=== PATIENT | male | born 1980 | race African-American/Black ===

== ENCOUNTER 2017-12-04 19:13 | Emergency (ER) | payer OTHER ==
[2017-12-04] MEDS: DIPHTH,PERTUSS(ACELL),TET TOX 0.5 ML DISP.SYRIN. VAX IM ×2 (19:44)
== END 2017-12-04 19:47 | disposition home or self-care (01) ==
LOC: ER 19:13
DX: S61.432A Puncture wound without foreign body of left hand, initial encounter (principal); Z88.1 Allergy status to other antibiotic agents; Z88.6 Allergy status to analgesic agent; W45.0XXA Nail entering through skin, initial encounter; Y93.89 Activity, other specified; Y99.8 Other external cause status; Y92.89 Other specified places as the place of occurrence of the external cause
CPT/HCPCS: 90471; 90715; 99283-25

== ENCOUNTER 2020-04-16 06:57 | Emergency (ER) | payer OTHER ==
[~2020-04-16] VITALS: Ht 172.7 cm; Wt 132.0 kg
[~2020-04-16 06:57] MED LIST: CEPH500C PO; HYDR-3164 PO; QUET25TA5 PO
[2020-04-16 07:58] LABS: BASO % 1 % (0-3); EOS # 0.1 x10^3/uL (0.0-0.7); EOS % 4 % (0-3); HEMATOCRIT 41.1 % (39.0-53.0); HEMOGLOBIN 13.7 g/dL (13.0-17.5); LYMPH # 1.2 x10^3/uL (1.0-4.8); LYMPH % 30 % (24-48); MEAN CORPUSCULAR HEMOGLOBIN 29 pg (25-35); MEAN CORPUSCULAR HGB CONC 33 g/dL (31-37); MEAN CORPUSCULAR VOLUME 87 fL (79-100); MONO # 0.6 x10^3/uL (0.0-1.1); MONO % 15 % (0-9); NEUT % 50 % (31-73); PLATELET COUNT 146 x10^3/uL (140-400); RED BLOOD COUNT 4.74 x10^6/uL (4.30-5.70); RED CELL DISTRIBUTION WIDTH 14.8 % (11.5-14.5); WHITE BLOOD COUNT 3.9 x10^3/uL (4.0-11.0)
--- NOTE | 2020-04-16 08:03 | RAD ---
Right ankle x-rays 3 views HISTORY: Right ankle pain. FINDINGS: There is benign mature periosteal ossification along the lateral cortex of the mid tibial shaft likely an old healed stress fracture or old healed traumatic injury. There is calf and ankle soft tissue edema noted. No acute fracture. No dislocation. No talus osteochondral lesion. IMPRESSION: No acute osseous injury. Ankle and calf soft tissue edema. Electronically signed by: Miguel Vicente MD (04/16/2020 8:00 AM) [id number]
[2020-04-16 08:06] LABS: CALCIUM 8.1 mg/dL (8.5-10.1); CREATININE 1.2 mg/dL (0.7-1.3); POTASSIUM 3.2 mmol/L (3.5-5.1)
[2020-04-16 08:11] LABS: ALBUMIN/GLOBULIN RATIO 0.9 (1.0-1.7); TOTAL BILIRUBIN 0.4 mg/dL (0.2-1.0); TOTAL PROTEIN 6.5 g/dL (6.4-8.2)
[2020-04-16] MEDS ORDERED: PROMETHAZINE 12.5 MG TABLET. PO ONE (08:45)
[2020-04-16] MEDS ORDERED: PROM25TA10 PO (08:53)
--- NOTE | 2020-04-16 08:54 | PHYS DOC ---
Past Medical History Past Medical History: Anxiety, Bronchitis, Depression Additional Past Medical Histor: bronchitis Past Surgical History: Other Additional Past Surgical Histo: LEFT ANKLE SURGERY Smoking Status: Former Smoker Alcohol Use: None Drug Use: None General Adult EDM: Chief Complaint: ANKLE PROBLEM HPI: HPI: Patient is a 39 year old male who presents with multiple complaints. Patient states that he sprained his ankle this morning stepping into a hole at a [facility] facility. He has had pain since then but has been able to bear weight. He also has been having some belly pain, nausea, diarrhea that has been ongoing for the last couple of weeks. He has been seen at the other emergency room's for this with normal work-ups. He was recently tested for coronavirus which was negative. Review of Systems: Review of Systems: General: Denies fever, chills, sweats, fatigue Eyes: Denies drainage, blurred vision, eye redness HENT: Denies rhinorrhea, sore throat, earache Respiratory: Denies cough, shortness of breath, wheezing Cardiac: Denies edema, palpitations, chest pain GI: Reports abdominal pain, nausea, diarrhea MSK: Denies back pain, neck pain Skin: Denies rash, jaundice Neuro: Denies headache, dizziness Psychiatric: Denies SI/HI Heart Score: Risk Factors: Risk Factors: DM, Current or recent (<one month) smoker, HTN, HLP, family history of CAD, obesity. Risk Scores: Score 0 - 3: 2.5% MACE over next 6 weeks - Discharge Home Score 4 - 6: 20.3% MACE over next 6 weeks - Admit for Clinical Observation Score 7 - 10: 72.7% MACE over next 6 weeks - Early Invasive Strategies Current Medications: Current Medications Medications (Trade) Dose Ordered Sig/Laila Start Time Stop Time Status Last Admin Dose Admin Promethazine HCl (Phenergan) 12.5 mg 1X ONCE 04/16/20 08:45 04/16/20 08:46 DC Allergies: Allergies: Allergies Coded Allergies Type Severity Reaction Last Updated Verified amoxicillin Allergy Intermediate hives 11/11/13 Yes cyclobenzaprine Allergy Unknown itching 05/20/16 Yes tramadol Allergy Unknown hives 05/20/16 Yes Physical Exam: PE: General: Awake, alert, NAD. Well Nourished, well hydrated. Cooperative HEENT: Atraumatic, EOMI, PERRL, airway patent, moist oral mucosa Neck: Supple, trachea midline Respiratory: CTA bilaterally, normal effort, no wheezing/crackles CV: RRR, no murmur, cap refill <2 GI: Soft, nondistended, nontender, no masses MSK: Ankle swelling without pinpoint tenderness, no obvious deformity, normal range of motion, normal sensation Skin: Warm, dry, intact Neuro: A&O x3, speech NL, sensory and motor grossly intact, no focal deficits Psych: Normal affect, normal mood, not suicidal or homicidal Current Patient Data: Labs: Laboratory Tests Test 04/16/20 07:45 White Blood Count 3.9 x10^3/uL (4.0-11.0) L Red Blood Count 4.74 x10^6/uL (4.30-5.70) Hemoglobin 13.7 g/dL (13.0-17.5) Hematocrit 41.1 % (39.0-53.0) Mean Corpuscular Volume 87 fL (79-100) Mean Corpuscular Hemoglobin 29 pg (25-35) Mean Corpuscular Hemoglobin Concent 33 g/dL (31-37) Red Cell Distribution Width 14.8 % (11.5-14.5) H Platelet Count 146 x10^3/uL (140-400) Neutrophils (%) (Auto) 50 % (31-73) Lymphocytes (%) (Auto) 30 % (24-48) Monocytes (%) (Auto) 15 % (0-9) H Eosinophils (%) (Auto) 4 % (0-3) H Basophils (%) (Auto) 1 % (0-3) Neutrophils # (Auto) 2.0 x10^3/uL (1.8-7.7) Lymphocytes # (Auto) 1.2 x10^3/uL (1.0-4.8) Monocytes # (Auto) 0.6 x10^3/uL (0.0-1.1) Eosinophils # (Auto) 0.1 x10^3/uL (0.0-0.7) Basophils # (Auto) 0.0 x10^3/uL (0.0-0.2) Sodium Level 144 mmol/L (136-145) Potassium Level 3.2 mmol/L (3.5-5.1) L Chloride Level 107 mmol/L (98-107) Carbon Dioxide Level 28 mmol/L (21-32) Anion Gap 9 (6-14) Blood Urea Nitrogen 11 mg/dL (8-26) Creatinine 1.2 mg/dL (0.7-1.3) Estimated GFR (Cockcroft-Gault) 82.0 BUN/Creatinine Ratio 9 (6-20) Glucose Level 110 mg/dL (70-99) H Calcium Level 8.1 mg/dL (8.5-10.1) L Total Bilirubin 0.4 mg/dL (0.2-1.0) Aspartate Amino Transferase (AST) 59 U/L (15-37) H Alanine Aminotransferase (ALT) 81 U/L (16-63) H Alkaline Phosphatase 84 U/L (46-116) Total Protein 6.5 g/dL (6.4-8.2) Albumin 3.0 g/dL (3.4-5.0) L Albumin/Globulin Ratio 0.9 (1.0-1.7) L Lipase 291 U/L (73-393) Laboratory Tests 04/16/20 07:45 Laboratory Tests 04/16/20 07:45 Vital Signs: Vital Signs Date Time Temp Pulse Resp B/P (MAP) Pulse Ox O2 Delivery O2 Flow Rate FiO2 04/16/20 07:06 98.0 104 20 144/88 (106) 97 Room Air 98.0 EKG: EKG: [] Radiology/Procedures: Radiology/Procedures: [] Course & Med Decision Making: Course & Med Decision Making Pertinent Labs and Imaging studies reviewed. (See chart for details) Patient is a 39-year-old male presents the emergency room with ankle pain and stomach complaints. Abdominal labs ordered including CBC, BMP, lipase, UA and were normal. Patient has a swollen ankle and x-rays were done. X-rays were negative for acute fracture. He likely has a sprain ankle. Julien wrap will be placed. Patient was given oral Phenergan for symptoms. Patient's test results and vitals while in the ED were fully reviewed and discussed with the patient. Patient is stable and at this time does not need admission to the hospital. We have discussed strict return precautions and the importance of following up with their Primary Care Physician. Patient stated understanding and was given an opportunity to ask any questions. Patient is in agreement with plan. Clemencia Disclaimer: Dragon Disclaimer: This electronic medical record was generated, in whole or in part, using a voice recognition dictation system. Departure Departure Impression: Primary Impression: Sprained ankle Additional Impressions: Abdominal pain Nausea Disposition: HOME, SELF-CARE Condition: STABLE Referrals: NO PCP (PCP) Patient Instructions: Abdominal Pain (Nonspecific), Ankle Sprain Scripts Promethazine Hcl (PROMETHAZINE HCL) 25 Mg Tablet 1 TAB PO PRN Q6HRS, #12 TAB Prov: NHI MELO MD 04/16/20 Justicifation of Admission Dx: Justifications for Admission: Justification of Admission Dx: No NHI MELO MD Apr 16, 2020 08:54
[2020-04-16 09:47] VITALS: BP 145/62
== END 2020-04-16 10:24 | disposition home or self-care (01) ==
LOC: ER 06:57
DX: S93.491A Sprain of other ligament of right ankle, initial encounter (principal); R10.9 Unspecified abdominal pain; R19.7 Diarrhea, unspecified; R11.0 Nausea; F41.9 Anxiety disorder, unspecified; J42 Unspecified chronic bronchitis; F32.9 Major depressive disorder, single episode, unspecified; Z98.890 Other specified postprocedural states; Z87.891 Personal history of nicotine dependence; Z88.0 Allergy status to penicillin; Z88.8 Allergy status to other drugs, medicaments and biological substances; W18.31XA Fall on same level due to stepping on an object, initial encounter; Y93.89 Activity, other specified; Y92.89 Other specified places as the place of occurrence of the external cause; Y99.8 Other external cause status
CPT/HCPCS: 36415; 73610; 80053; 83690; 85025; 99285; Q0169

== ENCOUNTER 2022-01-27 19:16 | Emergency (ER) | payer OTHER ==
[~2022-01-27] VITALS: Ht 170.2 cm; Wt 110.0 kg
[~2022-01-27 19:16] MED LIST changes: +PROM25TA10 PO
[2022-01-27] MEDS ORDERED: guaiFENesin/CODEINE 100mg/10mg 5 ML LIQUID PO STA (19:48)
[2022-01-27 19:59] LABS: BASO % 1 % (0-3); EOS # 0.1 x10^3/uL (0.0-0.7); EOS % 2 % (0-3); HEMATOCRIT 45.2 % (39.0-53.0); HEMOGLOBIN 14.7 g/dL (13.0-17.5); LYMPH # 0.8 x10^3/uL (1.0-4.8); LYMPH % 15 % (24-48); MEAN CORPUSCULAR HEMOGLOBIN 28 pg (25-35); MEAN CORPUSCULAR HGB CONC 33 g/dL (31-37); MEAN CORPUSCULAR VOLUME 86 fL (79-100); MONO # 0.7 x10^3/uL (0.0-1.1); MONO % 13 % (0-9); NEUT # 3.8 x10^3/uL (1.8-7.7); NEUT % 70 % (31-73); PLATELET COUNT 199 x10^3/uL (140-400); RED BLOOD COUNT 5.29 x10^6/uL (4.30-5.70); RED CELL DISTRIBUTION WIDTH 15.5 % (11.5-14.5); WHITE BLOOD COUNT 5.4 x10^3/uL (4.0-11.0)
[2022-01-27] MEDS ORDERED: IPRATRPIUM/ALBUTEROL 0.5/2.5MG 3 ML NEBU. NEB ONE (20:00)
[2022-01-27] MEDS ORDERED: DEXAMETHASONE SOD PHOS 20 MG/5 ML VIAL. IV ONE (20:00)
[2022-01-27 20:07] LABS: CALCIUM 8.9 mg/dL (8.5-10.1); CREATININE 0.9 mg/dL (0.7-1.3); GFR 113.1
[2022-01-27 20:13] LABS: ALBUMIN 3.4 g/dL (3.4-5.0); ALBUMIN/GLOBULIN RATIO 0.9 (1.0-1.7); MAGNESIUM 1.7 mg/dL (1.8-2.4); TOTAL BILIRUBIN 0.4 mg/dL (0.2-1.0); TOTAL PROTEIN 7.4 g/dL (6.4-8.2)
[2022-01-27] MEDS ORDERED: fentaNYL PF VIAL 100 MCG/2 ML VIAL IVP ONE (20:15)
[2022-01-27 20:44] VITALS: BP 139/80
--- NOTE | 2022-01-27 20:59 | RAD ---
XR CHEST 1V History: Reason: cough / Spl. Instructions: / History: Comparison: None. Findings: No consolidation or pleural effusion. Normal heart size. No pneumothorax. Impression: 1. No acute cardiopulmonary process. Electronically signed by: Stevenson Simmons DO (01/27/2022 8:56 PM) [facility] [place]
[2022-01-27] MEDS ORDERED: BENZ-8 PO (21:22)
--- NOTE | 2022-01-27 21:23 | PHYS DOC ---
Past Medical History Past Medical History: Anxiety, Bronchitis, Depression Additional Past Medical Histor: bronchitis Past Surgical History: Other Additional Past Surgical Histo: LEFT ANKLE SURGERY Smoking Status: Never Smoker Alcohol Use: None Drug Use: None General Adult EDM: Chief Complaint: SHORTNESS OF BREATH HPI: HPI: Patient is a 41 year old male with history of bronchitis, depression, anxiety, presenting to the ED today complaining of a productive cough with shortness of breath, symptoms of been going on since January 11, 2022. Patient states he has been seen at [facility] multiple times including a couple days ago, he states they have done an extensive work-up and could not find anything wrong with him. He states his whole body hurts and would like something for pain. Review of Systems: Review of Systems: Constitutional: Denies fever or chills. [] Eyes: Denies change in visual acuity. [] HENT: Denies nasal congestion or sore throat. [] Respiratory: Reports cough and shortness of breath. [] Cardiovascular: Denies chest pain or edema. [] GI: Denies abdominal pain, nausea, vomiting, bloody stools or diarrhea. [] : Denies dysuria. [] Musculoskeletal: Denies back pain or joint pain. [] Integument: Denies rash. [] Neurologic: Denies headache, focal weakness or sensory changes. [] Psychiatric: Denies depression or anxiety. [] Heart Score: C/O Chest Pain: N/A Risk Factors: Risk Factors: DM, Current or recent (<one month) smoker, HTN, HLP, family history of CAD, obesity. Risk Scores: Score 0 - 3: 2.5% MACE over next 6 weeks - Discharge Home Score 4 - 6: 20.3% MACE over next 6 weeks - Admit for Clinical Observation Score 7 - 10: 72.7% MACE over next 6 weeks - Early Invasive Strategies Current Medications: Current Medications Medications (Trade) Dose Ordered Sig/Laila Start Time Stop Time Status Last Admin Dose Admin Albuterol/ Ipratropium (Duoneb) 3 ml 1X ONCE 01/27/22 20:00 01/27/22 20:01 DC 01/27/22 20:49 3 ML Dexamethasone Sodium Phosphate (Decadron) 10 mg 1X ONCE 01/27/22 20:00 01/27/22 20:01 DC 4/20/22 20:43 10 MG Fentanyl Citrate (Fentanyl 2ml Vial) 50 mcg 1X ONCE 01/27/22 20:15 01/27/22 20:16 DC 01/27/22 20:43 50 MCG Guaifenesin/ Codeine Phosphate (Robitussin Ac) 10 ml 1X STAT 01/27/22 19:48 01/27/22 19:53 DC 01/27/22 20:42 10 ML Ketorolac Tromethamine (Toradol 30mg Vial) 30 mg 1X ONCE 01/27/22 21:15 01/27/22 21:16 UNV Allergies: Allergies: Allergies Coded Allergies Type Severity Reaction Last Updated Verified amoxicillin Allergy Intermediate hives 11/11/13 Yes cyclobenzaprine Allergy Unknown itching 05/20/16 Yes tramadol Allergy Unknown hives 05/20/16 Yes Physical Exam: PE: Constitutional: Well developed, well nourished, no acute distress, non-toxic appearance. [] HENT: Normocephalic, atraumatic, bilateral external ears normal, oropharynx moist, no oral exudates, nose normal. [] Eyes: PERRLA, EOMI, conjunctiva normal, no discharge. [] Neck: Normal range of motion, no tenderness, supple, no stridor. [] Cardiovascular:Tachycardic. Heart rate regular rhythm Lungs & Thorax: Bilateral breath sounds clear to auscultation [] Abdomen: Bowel sounds normal, soft, no tenderness, no masses, no pulsatile masses. [] Skin: Warm, dry, no erythema, no rash. [] Back: No tenderness, no CVA tenderness. [] Extremities: No tenderness, no cyanosis, no clubbing, ROM intact, no edema. [] Neurologic: Alert and oriented X 3, normal motor function, normal sensory function, no focal deficits noted. [] Psychologic: Restless Current Patient Data: Labs: Laboratory Tests Test 01/27/22 19:50 White Blood Count 5.4 x10^3/uL (4.0-11.0) Red Blood Count 5.29 x10^6/uL (4.30-5.70) Hemoglobin 14.7 g/dL (13.0-17.5) Hematocrit 45.2 % (39.0-53.0) Mean Corpuscular Volume 86 fL (79-100) Mean Corpuscular Hemoglobin 28 pg (25-35) Mean Corpuscular Hemoglobin Concent 33 g/dL (31-37) Red Cell Distribution Width 15.5 % (11.5-14.5) H Platelet Count 199 x10^3/uL (140-400) Neutrophils (%) (Auto) 70 % (31-73) Lymphocytes (%) (Auto) 15 % (24-48) L Monocytes (%) (Auto) 13 % (0-9) H Eosinophils (%) (Auto) 2 % (0-3) Basophils (%) (Auto) 1 % (0-3) Neutrophils # (Auto) 3.8 x10^3/uL (1.8-7.7) Lymphocytes # (Auto) 0.8 x10^3/uL (1.0-4.8) L Monocytes # (Auto) 0.7 x10^3/uL (0.0-1.1) Eosinophils # (Auto) 0.1 x10^3/uL (0.0-0.7) Basophils # (Auto) 0.0 x10^3/uL (0.0-0.2) Sodium Level 139 mmol/L (136-145) Potassium Level 4.0 mmol/L (3.5-5.1) Chloride Level 100 mmol/L (98-107) Carbon Dioxide Level 30 mmol/L (21-32) Anion Gap 9 (6-14) Blood Urea Nitrogen 9 mg/dL (8-26) Creatinine 0.9 mg/dL (0.7-1.3) Estimated GFR (Cockcroft-Gault) 113.1 BUN/Creatinine Ratio 10 (6-20) Glucose Level 114 mg/dL (70-99) H Calcium Level 8.9 mg/dL (8.5-10.1) Magnesium Level 1.7 mg/dL (1.8-2.4) L Total Bilirubin 0.4 mg/dL (0.2-1.0) Aspartate Amino Transferase (AST) 24 U/L (15-37) Alanine Aminotransferase (ALT) 43 U/L (16-63) Alkaline Phosphatase 81 U/L (46-116) Troponin I High Sensitivity 6 ng/L (4-75) KA-Nrq-[id number]-Type Natriuretic Peptide 40 pg/mL (0-124) Total Protein 7.4 g/dL (6.4-8.2) Albumin 3.4 g/dL (3.4-5.0) Albumin/Globulin Ratio 0.9 (1.0-1.7) L Thyroid Stimulating Hormone (TSH) 1.494 uIU/mL (0.358-3.74) Laboratory Tests 01/27/22 19:50 Laboratory Tests 01/27/22 19:50 Vital Signs: Vital Signs Date Time Temp Pulse Resp B/P (MAP) Pulse Ox O2 Delivery O2 Flow Rate FiO2 01/27/22 20:50 99 Room Air 01/27/22 19:40 97.3 130 18 149/91 (110) 97.3 EKG: EKG: [] Radiology/Procedures: Radiology/Procedures: []PROCEDURE: PORTABLE CHEST 1V XR CHEST 1V History: Reason: cough / Spl. Instructions: / History: Comparison: None. Findings: No consolidation or pleural effusion. Normal heart size. No pneumothorax. Impression: 1. No acute cardiopulmonary process. Electronically signed by: Stevenson Alexander DO (01/27/2022 8:56 PM) [facility] DICTATED and SIGNED BY: STEVENSON ALEXANDER DO DATE: 01/27/222055 Course & Med Decision Making: Course & Med Decision Making Pertinent Labs and Imaging studies reviewed. (See chart for details) This a 41-year-old male patient well-known to this ED presenting to the ED today with shortness of breath and a cough that has been going on since January 11, 2022. Patient has been seen at [facility] multiple times. He showed me some of his visits at [facility] and they have done an extensive work-up on him with nothing acute being found. He is in the ED begging for pain medicine. He was initially given guaifenesin with codeine, he states that did not do anything. He was given fentanyl. He states that did not do anything for him. I went and talked to him personally. Informed him I do not see any reason for more pain medicine. Offered him Toradol. He has been on his call light every few minutes asking for pain medicine. He is now asking for Phenergan IV. Informed him Phenergan IV was taken out of formulary from [place]. Chest x-ray is negative, CBC CMP troponin are negative. Will be discharged to home. He states he does not have a home to go to. Informed he will be given homeless fci to go to. Follow-up with PCP Clemencia Disclaimer: Clemencia Disclaimer: This electronic medical record was generated, in whole or in part, using a voice recognition dictation system. Departure Departure Impression: Primary Impression: Shortness of breath Additional Impression: Chronic bronchitis Qualified Codes: J42 - Unspecified chronic bronchitis Disposition: HOME / SELF CARE / HOMELESS Condition: STABLE Referrals: NO PCP (PCP) follow up with your doctor in one week Patient Instructions: Acute Bronchitis, [id number], Shortness of Breath, [id number] Additional Instructions: You were evaluated in the emergency room, your work-up is negative for any acute findings. Please follow-up with your own primary care doctor as soon as you can Scripts Benzonatate (BENZONATATE) 100 Mg Capsule 1 CAP PO TID, #30 CAP Prov: ROBYN ABBOTT APRN 01/27/22 ROBYN ABBOTT APRN Jan 27, 2022 21:23
[2022-01-27] MEDS ORDERED: KETOROLAC 30 MG/ML VIAL. IVP ONE (21:30)
--- NOTE | 2022-01-28 09:44 | EKG ---
[facility] [address] [place] [address] Test Date: 2022-01-27 Test Time: 20:22:04 Pat Name: DULCE JUAREZ Department: Room: Gender: M Painter Foreman: : 1980 Requested By: ROBYN ABBOTT Order Number: [id number] Reading MD: Measurements Intervals [place] Rate: 114 P: 36 DC: 142 QRS: 44 QRSD: 86 T: 26 QT: 308 QTc: 428 Interpretive Statements SINUS TACHYCARDIA OTHERWISE NORMAL ECG RI6.02 No previous ECG available for comparison
--- NOTE | 2022-01-28 09:50 | EKG ---
[facility] [address] [place] [address] Test Date: 2022-01-27 Test Time: 20:51:44 Pat Name: DULCE JUAREZ Department: Room: Gender: M Grounds Maintenance Manager: : 1980 Requested By: ROBYN ABBOTT Order Number: [id number] Reading MD: Measurements Intervals [place] Rate: 119 P: 62 NM: 136 QRS: 59 QRSD: 90 T: 42 QT: 292 QTc: 411 Interpretive Statements SINUS TACHYCARDIA LEFT ATRIAL ABNORMALITY ABNORMAL ECG RI6.02 Compared to ECG 01/27/2022 20:50:33 No significant changes
== END 2022-01-27 21:27 | disposition home or self-care (01) ==
LOC: ER 19:16
DX: J42 Unspecified chronic bronchitis (principal); R06.02 Shortness of breath; Z88.1 Allergy status to other antibiotic agents; Z88.6 Allergy status to analgesic agent; Z88.8 Allergy status to other drugs, medicaments and biological substances
CPT/HCPCS: 36415; 71045; 80053; 83735; 83880; 84443; 84484; 85025; 93005; 94640; 96374; 96375; 99284; J1100; J1885; J3010